=== PATIENT | female | born 2000 | race Caucasian/White ===

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

== ENCOUNTER 2019-11-12 08:38 | Day surgery (SDC) | payer OTHER, SELFPAY ==
[~2019-11-12] VITALS: Ht 160 cm; Wt 61.2 kg
[~2019-11-12 08:38] MED LIST: ELA25 PO; MAGN400S60 PO; MELA5TAB6 PO; METH-1681 PO; THYR60TA7 PO; VIT1TABL36 PO; VITA1TAB44 PO; [UNRECOGNIZED DRUG - CODE] PO
[2019-11-12] MEDS ORDERED: BUPIVACAINE-MPF 0.25% 30 ML VIAL INJ ONE (10:33)
[2019-11-12] MEDS ORDERED: LIDOCAINE 1% 500 MG/50 ML VIAL ONE (10:33)
[2019-11-12] MEDS ORDERED: GLYCOPYRROLATE 0.2 MG/ML VIAL ONE (10:52)
[2019-11-12] MEDS ORDERED: MIDAZOLAM 2 MG/2 ML VIAL ONE (10:52)
[2019-11-12] MEDS ORDERED: NEOSTIGMINE 1:1000 10 MG/10 ML VIAL ONE (10:52)
[2019-11-12] MEDS ORDERED: ONDANSETRON 4 MG/2 ML VIAL ONE (10:52)
[2019-11-12] MEDS ORDERED: fentaNYL 0.05 MG/ML VIAL ONE (10:52)
[2019-11-12] MEDS ORDERED: DEXAMETHASONE 4 MG/ML VIAL ONE (10:52)
[2019-11-12] MEDS ORDERED: ROCURONIUM 50 MG/5 ML VIAL IV ONE (10:52)
[2019-11-12] MEDS ORDERED: SEVOFLURANE 250 ML BTL INH ONE (10:52)
[2019-11-12] MEDS ORDERED: HYDROmorphone 1 MG/ML AMP IVP PRN (11:50)
[2019-11-12] MEDS ORDERED: ONDANSETRON 4 MG/2 ML VIAL IV PRN (11:50)
[2019-11-12] MEDS ORDERED: MORPHINE SULFATE 4 MG/ML SYR IV PRN (11:50)
[2019-11-12] MEDS ORDERED: MORPHINE SULFATE 2 MG/ML SYR IVP PRN (11:50)
[2019-11-12] MEDS ORDERED: HYDROcodone/APAP 5/325 MG 1 TAB TAB PO PRN (11:50)
[2019-11-12] MEDS ORDERED: LACTATED RINGERS 1,000 ML IV SCH (12:07)
[2019-11-12] MEDS ORDERED: ONDANSETRON 4 MG/2 ML VIAL IVP PRN (12:10)
[2019-11-12] MEDS ORDERED: MEPERIDINE 25 MG/ML SYR IVP PRN (12:10)
[2019-11-12] MEDS: HYDROmorphone 1 MG/ML AMP IVP PRN ×4 (12:10→12:40)
[2019-11-12] MEDS ORDERED: HYDROmorphone PFS 2 MG/ML SYR ONE (12:11)
== END 2019-11-12 13:45 | disposition home or self-care (01) ==
LOC: MMU 08:38 → MDS 08:38
PROVIDERS: ATTEND Surgery
DX: K42.9 Umbilical hernia without obstruction or gangrene (principal); M79.7 Fibromyalgia; F41.9 Anxiety disorder, unspecified; Z79.899 Other long term (current) drug therapy; Z98.890 Other specified postprocedural states
CPT/HCPCS: 36415; 49585; 71045; 87635; J0690; J1100; J1170; J2001; J2250; J2405; J2710; J3010; J3490; J7060; J7120; Q0092

== ENCOUNTER 2021-03-15 20:03 | Emergency (ER) | payer OTHER, SELFPAY ==
[~2021-03-15] VITALS: Ht 160 cm; Wt 70.3 kg
[~2021-03-15 20:03] MED LIST changes: +AMIT25TA40 PO; -ELA25 PO
[2021-03-15 20:07] VITALS: BP 137/84
--- NOTE | 2021-03-15 20:10 | NUR ---
TO LOBBY A/W BED AMBULATORY
--- NOTE | 2021-03-15 22:50 | NUR ---
PT AMBULATED TO BED 2
[2021-03-15] MEDS ORDERED: METH-1681 PO (23:48)
--- NOTE | 2021-03-15 23:54 | NUR ---
SEEN AND DISCHARGED BY EVGENY RAMIREZ. NO NURSING INTERVENTIONS NEEDED.
[2021-03-15 23:55] VITALS: BP 137/84
--- NOTE | 2021-03-15 23:55 | NUR ---
Patient discharged with v/s stable. Written and verbal after care instructions given and explained. Patient alert, oriented and verbalized understanding of instructions. Ambulatory with steady gait. All questions addressed prior to discharge. ID band removed. Patient advised to follow up with PMD. Rx of ROBAXIN given. Patient educated on indication of medication including possible reaction and side effects. Opportunity to ask questions provided and answered.
== END 2021-03-15 23:55 | disposition home or self-care (01) ==
LOC: MED 20:03
DX: S39.012A Strain of muscle, fascia and tendon of lower back, initial encounter (principal); Z91.018 Allergy to other foods; Z79.899 Other long term (current) drug therapy; X58.XXXA Exposure to other specified factors, initial encounter; Y93.89 Activity, other specified; Y92.89 Other specified places as the place of occurrence of the external cause; Y99.8 Other external cause status
CPT/HCPCS: 99283

== ENCOUNTER 2021-03-19 12:11 | Emergency (ER) | payer OTHER ==
[~2021-03-19] VITALS: Ht 160 cm; Wt 70.8 kg
[2021-03-19 12:41] VITALS: BP 112/74
[2021-03-19] MEDS ORDERED: METH100S16 PO (12:46)
--- NOTE | 2021-03-19 12:47 | NUR ---
PT BIB FAMILY, PT AMB TO ER BED 6 C/O LOW BACK X 1 WEEKS. NO TRAUMA NOTED, SEEN AT [facility] ER FOR SAME S/S 03/15/21, PAIN8/10 UA DONE
--- NOTE | 2021-03-19 13:01 | NUR ---
20 Y/O FEMALE C/O LOW BACK PAIN FOR 1.5 WEEKS. SEEN HERE FOR SIMILAR SYMPTOMS. TAKING ROBAXIN WITH NO RELIEF. STATES 8/10 PRESSURE PAIN RADIATING TO UPPER BACK AND SIDES. DENIES ANY RECENT INJURY OR TRAUMA. MEDHX: FIBROMYALGIA, HYPOTHYROID ALLERIGES: "RED-DYE" IN ADVIL
--- NOTE | 2021-03-19 14:37 | NUR ---
ERMD AT BEDSIDE EXAMINING PT
[2021-03-19] MEDS ORDERED: KETOROLAC 60 MG/2 ML VIAL IM ONE (14:40)
[2021-03-19] MEDS ORDERED: IBUP-2213 PO (15:10)
[2021-03-19] MEDS ORDERED: ACET-8386 PO (15:10)
[2021-03-19 15:45] VITALS: BP 112/74
--- NOTE | 2021-03-19 15:45 | NUR ---
Patient discharged with v/s stable. Written and verbal after care instructions given and explained. Patient alert, oriented and verbalized understanding of instructions. Ambulatory with steady gait. All questions addressed prior to discharge. ID band removed. Patient advised to follow up with PMD. Rx of HYDROCODONE/ACETAMINOPHEN AND IBUPROFEN given. Patient educated on indication of medication including possible reaction and side effects. Opportunity to ask questions provided and answered.
== END 2021-03-19 15:45 | disposition home or self-care (01) ==
LOC: MED 12:11
DX: M54.5 Low back pain (principal); E03.9 Hypothyroidism, unspecified; Z98.890 Other specified postprocedural states; Z79.899 Other long term (current) drug therapy; Z91.018 Allergy to other foods
CPT/HCPCS: 81002; 81025; 96372; 99283; J1885